=== PATIENT | female | born 1955 | race Caucasian/White ===

== ENCOUNTER → 2016-11-25 | Outpatient (CLI) | payer OTHER ==
--- NOTE | 2016-11-27 07:50 | DX ---
DEXA Bone Densitometry Technique: DEXA scan was performed on [employer] Discovery W Bone Densitometer Indication: Prior fracture Comparator Study: None Results: Lumbar Spine BMD: 0.978 T-score: -0.6 1/3 Radius BMD: 0.647 T-score: -0.6 CONCLUSION: Normal bone mineral density ADDITIONAL COMMENTS: Consider repeating the study in 3-4 years NOTE: The risk of osteoporotic fractures increases approximately twofold for each 1.0 SD decrease in T-score. The T-score represents the standard deviations from a young normal, same sex, reference po pulation. Low bone density is not the only risk factor for fracture. Clinical factors to consider include fall risk, previous osteoporotic fractures, family history of fractures, smoking, and low body weight. Patients who have an unexpectedly low BMD may need to be evaluated for secondary causes of low bone m ineral density. In comparing the present study to a prior study, lack of a significant increase or decrease in BMD ma y signify efficacy of the patient's present treatment. Bone mineral density measurements performed with densitometers produced by different manufacturers ar e not comparable. For the most reproducible BMD measurement, subsequent exams should be performed on the same densitometer.
== END ==
LOC: BMCIMAGING 10:02
PROVIDERS: ATTEND Internal Medicine
DX: Z13.820 Encounter for screening for osteoporosis (principal)

== ENCOUNTER 2018-08-08 10:08 | Inpatient (IN) | payer OTHER ==
--- NOTE | 2018-08-08 10:38 | EDPHY ---
H & P Stated Complaint: Right sided weakness Time Seen by Provider: 08/08/18 10:24 - Personal History Current Tetanus/Diphtheria Vaccine: Yes - Medical/Surgical History Hx Asthma: No Hx Chronic Respiratory Disease: No Hx Diabetes: No Hx Cardiac Disease: No Hx Renal Disease: No Hx Cirrhosis: No Hx Alcoholism: No Other PMH: Sepsis, anxiety, - Social History Smoking Status: Never smoked Constitutional: Initial Vital Signs Temperature (C) 37.4 C 08/08/18 10:12 Heart Rate 102 H 08/08/18 10:12 Respiratory Rate 18 08/08/18 10:12 Blood Pressure 117/87 H 08/08/18 10:12 O2 Sat (%) 96 08/08/18 10:12 O2 Delivery Mode Room Air Allergies/Adverse Reactions: Penicillins Allergy (Intermediate, Verified 08/08/18 10:17) RASH, SOB Sulfa (Sulfonamide Antibiotics) Allergy (Intermediate, Verified 08/08/18 10:17) RASH, SOB Home Medications: Medication Instructions Recorded Cephalexin [Keflex] 500 mg PO QID #40 cap 06/24/11 Estradiol [Vivelle-Dot] 1 g PO 06/24/11 Gabapentin 150 mg PO 06/24/11 Phenazopyridine HCl [Pyridium] 100 mg PO TID PRN #10 tab 06/24/11 Pnv No.4/Iron Cbn&Gluc/FA/Tr 1 each PO 06/24/11 [Vinate Calcium Tablet] Pregabalin [Lyrica] 50 mg PO DAILY 06/24/11 Prometrium 06/24/11 Tramadol HCl [Rybix Odt] 25 mg PO TID 06/24/11 levOFLOXACIN [Levaquin] 750 mg PO DAILY #7 tab 06/24/11 Departure - Departure Condition: Fair Referrals: Ludy Caro MD [Primary Care Provider] - As per Instructions
--- NOTE | 2018-08-08 10:49 | EDPHY ---
H & P Smoking Status: Never smoked Time Seen by Provider: 08/08/18 10:24 HPI/ROS: CHIEF COMPLAINT: Fever, weakness, myalgias HISTORY OF PRESENT ILLNESS: 62-year-old female presents to the emergency department by private vehicle complaining of fever, weakness and general myalgias. The patient states that she woke up on with fairly abrupt onset of some right-sided jaw and neck pain that radiated up to the right side of her head and down into her right shoulder. She went to see her dentist who did an x-ray and thought that she had an abscess tooth. She apparently had some dental work on Thursday. She was not started on antibiotics at that time as she was told that the guidelines and changed. She called her primary care provider over the weekend because she was feeling weak and achy and they thought that she needed an antibiotic. A prescription for Zithromax was called for the patient, however she has not started it since she has felt too weak to drive to pick it up. She feels short of breath. She is also having pain in her chest although she does not know if this is pain in her breast or in her chest. Denies back pain. She has had temperatures of 104-102. She took some ibuprofen this morning at 9:00 a.m., 2 hr ago for a temperature of 102 degrees. She feels generally overall weak. 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 She typically walks on her own although has been told that she should be walking with a cane. She has been under lot of stress lately which she feels is aggravating her irritable bowel syndrome. Her primary care provider recommended that she see a psychiatrist and saw a psychiatrist for the 1st time 2 weeks ago was started on Paxil 10 mg taking half a tablet and working her way up to a full 10 mg tablet. She was also given lorazepam 0.5 mg to use p.r.n. Anxiety. REVIEW OF SYSTEMS: Constitutional: Fevers, chills as above. Eyes: No double or blurry vision. ENT: Mouth is very dry. No sore throat. No dysphagia. Respiratory: No cough, no shortness of breath. Cardiac: No chest pain. Gastrointestinal: No abdominal pain, vomiting or diarrhea. Genitourinary: No dysuria. Musculoskeletal: Right-sided neck and jaw pain. No back pain. Skin: No rashes. Neurological: Right-sided headache. (Kasie Campoverde) Past Medical/Surgical History: Perforated appendicitis and sepsis 2010, (Kasie Campoverde) Social History: , she had twins at the age of 49. 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 (Kasie Campoverde) Physical Exam: General Appearance: Alert, no distress. Temperature 37.4 degrees, heart rate 105, 96% on room air. Eyes: Pupils equal and round. Extraocular motions are all intact. ENT: Mouth: Mucous membranes appears very dry. Respiratory: No wheezing, rhonchi, or rales, lungs are clear to auscultation. Cardiovascular: Irregular rate and rhythm. Gastrointestinal: Abdomen is soft and nontender, no masses, no rebound or guarding, bowel sounds normal. Neurological: Alert and oriented x 3, cranial nerves II through XII grossly intact Skin: Warm and dry, no rashes. Musculoskeletal: Nontender to palpate along the cervical, thoracic or lumbar spine. Neck is supple. Extremities: Full range of motion and no peripheral edema. Psychiatric: Patient is oriented X 3, there is no agitation. (Kasie Campoverde) Constitutional: Initial Vital Signs Temperature (C) 37.4 C 08/08/18 10:12 Heart Rate 102 H 08/08/18 10:12 Respiratory Rate 18 08/08/18 10:12 Blood Pressure 117/87 H 08/08/18 10:12 O2 Sat (%) 96 08/08/18 10:12 O2 Delivery Mode Room Air Allergies/Adverse Reactions: Penicillins Allergy (Intermediate, Verified 08/08/18 10:17) RASH, SOB Sulfa (Sulfonamide Antibiotics) Allergy (Intermediate, Verified 08/08/18 10:17) RASH, SOB Home Medications: Medication Instructions Recorded Cholecalciferol (Vitamin D3) 3,000 unit PO HS 08/08/18 [Vitamin D3] Herbals/Supplements -Info Only 1 ea PO DAILY 08/08/18 Ibuprofen [Advil] 400 mg PO BID PRN 08/08/18 LORazepam [Ativan (*)] 0.25 mg PO BID PRN 08/08/18 Multivitamins [Multivitamin (*)] 1 each PO DAILY 08/08/18 Nf Estrogen 1 each PO HS 08/08/18 Nf Testosterone/Dhea 1 each PO DAILY 08/08/18 PARoxetine HCL [Paxil 10mg (*)] 2.5 mg PO BID 08/08/18 traMADol [Ultram 50 mg (*)] 12.5 mg PO TID PRN 08/08/18 Medical Decision Making - Diagnostics Imaging: Discussed imaging studies w/ orthopedically impaired teacher Radiologist - Diagnostics Imaging Results: Imaging Impressions Chest X-Ray 08/08/18 10:52 Impression: No evidence for acute cardiopulmonary abnormality. Head CT 08/08/18 11:14 Impression: Normal CT of the head without contrast for age. Results called and discussed with Kasie Campoverde PA-C on August 08, 2018 at 1215 hours. Head CTA 08/08/18 11:14 Impression: 1. The common carotid arteries and vertebral arteries are widely patent without evidence for flow significant stenosis or dissection. 2. Multilevel degenerative disk and degenerative joint disease cervical spine. Measurement of carotid stenosis is based on the residual internal carotid diameter with [place] Symptomatic Carotid Endarterectomy Trial (NASCET) based stenosis levels. CT Angiogram of the Brain Clinical Indications: Headache, dizziness, weakness. Technique: CT angiogram of the brain was performed with the uneventful intravenous administration of 75 mL Isovue-370 contrast. Multiplanar reconstructions including 3D reconstructions performed and evaluated on [employer] workstation in order to better evaluate the lower b[place] of [place] vessels. Images were manipulated by the radiologist at the computer workstation. Dose reduction techniques were utilized. Findings: Major vessels of the lower b[place] of [place] are adequately displayed, demonstrating no evidence of aneurysm, vascular malformation, flow-limiting stenosis, or occlusion. Bilateral cavernous internal carotid arteries and vertebrobasilar system demonstrate no evidence of flow-limiting stenosis, aneurysm, occlusion, or dissection. Superior sagittal sinus, transverse sinuses , and major veins demonstrate no evidence of intraluminal thrombi. There is a tiny right posterior communicating artery and there appears to be mild dilatation of the origin, measuring 1.5 mm or infundibulum. Might just likely be a small aneurysm. Other variant anatomy includes persistent communication from the cavernous internal carotid artery to the basilar artery. Impression: Probable mild dilatation of the origin/infundibulum of the right posterior communicating artery, which is hypoplastic otherwise. Consider follow- up with a less likely consideration that this could be a small aneurysm. Otherwise, normal CT angiogram of the brain. Results called and discussed with Kasie Campoverde PA-C on August 08, 2018 at 1220 hours. Neck CTA 08/08/18 11:14 Impression: 1. The common carotid arteries and vertebral arteries are widely patent without evidence for flow significant stenosis or dissection. 2. Multilevel degenerative disk and degenerative joint disease cervical spine. Measurement of carotid stenosis is based on the residual internal carotid diameter with [place] Symptomatic Carotid Endarterectomy Trial (NASCET) based stenosis levels. CT Angiogram of the Brain Clinical Indications: Headache, dizziness, weakness. Technique: CT angiogram of the brain was performed with the uneventful intravenous administration of 75 mL Isovue-370 contrast. Multiplanar reconstructions including 3D reconstructions performed and evaluated on [employer] workstation in order to better evaluate the lower b[place] of [place] vessels. Images were manipulated by the radiologist at the computer workstation. Dose reduction techniques were utilized. Findings: Major vessels of the lower b[place] of [place] are adequately displayed, demonstrating no evidence of aneurysm, vascular malformation, flow-limiting stenosis, or occlusion. Bilateral cavernous internal carotid arteries and vertebrobasilar system demonstrate no evidence of flow-limiting stenosis, aneurysm, occlusion, or dissection. Superior sagittal sinus, transverse sinuses , and major veins demonstrate no evidence of intraluminal thrombi. There is a tiny right posterior communicating artery and there appears to be mild dilatation of the origin, measuring 1.5 mm or infundibulum. Might just likely be a small aneurysm. Other variant anatomy includes persistent communication from the cavernous internal carotid artery to the basilar artery. Impression: Probable mild dilatation of the origin/infundibulum of the right posterior communicating artery, which is hypoplastic otherwise. Consider follow- up with a less likely consideration that this could be a small aneurysm. Otherwise, normal CT angiogram of the brain. Results called and discussed with Kasie Campoverde PA-C on August 08, 2018 at 1220 hours. ED Course/Re-evaluation: 62-year-old female presents to the emergency department feeling weak. She is complaining of right-sided jaw in headache. The case was discussed with Dr. Delores Talavera who also evaluated the patient. CT imaging of the brain without contrast and CTA of the head and neck were ordered which revealed no evidence of intracranial bleeding, mass, dissection. There was a possible infundibulum versus possible 1.8 mm small aneurysm. This was discussed with the patient. Radiologist recommended follow-up CT scan in 6 months for further evaluation. The patient had had an EKG with sinus arrhythmia. Her troponin was negative. She will be admitted to telemetry floor. Laboratory studies reveal sodium of 127. The patient is also anemic with hemoglobin of 12 and hematocrit 34.7%. I was concerned that this patient was septic. The patient had recent dental work and has reported temperatures of 104-102 degrees. Temperature was 37.4 degrees. Lactate was normal. Blood cultures are pending. Chest x-ray reveals no evidence of pneumonia. Urinalysis reveals only trace bacteria with no other signs of infection. (Kasie Campoverde) Differential Diagnosis: Including but not limited to electrolyte abnormality, arrhythmia, aneurysm, dissection, sepsis (Kasie Campoverde) Other Provider: [id number]: Assessed patient in conjunction with RAMAN Campoverde. This is a 62 y/o female with a complicated medical history complaining of malaise for the last week, weakness, and right upper extremity pain. Last week she developed a sore throat with right-sided jaw and ear pressure. She saw her dentist last for this and had a procedure performed where they drilled through one of her crowns. This improved the right ear pressure, but she now has left ear pressure. Over the past several days, she has developed shooting pain in her right jaw, right side of her head and face, right lateral neck, right shoulder, and down the right side of her back. She thought her symptoms could be related to TMJ and jaw clenching and her ENT prescribed a muscle relaxant that the patient was unable to tolerate. She currently feels "weak and achy all over," has a headache, continues to have right upper extremity pain, and feels near-syncopal upon sitting up in bed. Advil has not improved her pain. She notes she has been under extreme stress at work for several months. She's experienced intermittent panic attacks and tachycardia that she discussed with her PCP. She trialed Zoloft, but discontinued due to side effects. She started a low dose of Paxil and lorazepam 9 days ago. The 0.25mg lorazepam BID improves her shakiness. She mentions over the last few months she's had intermittent palpitations that "sometimes it feels like arhythmia, sometimes it feels like heart racing." She also notes new occasional urinary incontinence. PMH includes: 1. UTI infections, bowel infections 2. Severe degenerative osteoarthritis requiring hip replacements 7 and 10 years ago. Surgery caused sciatic nerve damage in hip with partial paralysis that has slowly improved. 3. Sepsis related to ruptured appendix and abscesses 7 years. Subsequent bowel resections required - Dr. 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 Friend at bedside. PCP : Dr. Ludy Caro Exam: irregular heart rate, neuro ___ (Delores Talavera) - Data Points Laboratory Results: Laboratory Results 08/08/18 10:29 08/08/18 10:29 08/08/18 08/08/18 08/08/18 12:20 10:58 10:34 WBC RBC Hgb Hct MCV MCH MCHC RDW Plt Count MPV Neut % (Auto) Lymph % (Auto) [place] % (Auto) Eos % (Auto) Baso % (Auto) Nucleat RBC Rel Count Absolute Neuts (auto) Absolute Lymphs (auto) Absolute Monos (auto) Absolute Eos (auto) Absolute Basos (auto) Absolute Nucleated RBC Immature Gran % Seg Neutrophils % Band Neutrophils % Lymphocytes % Monocytes % Eosinophils % Basophils % Metamyelocytes % Myelocytes % Promyelocytes % Blast Cells % Immature Gran # Absolute Seg Neuts Absolute Band Neuts Absolute Lymphocytes Absolute Monocytes Absolute Eosinophils Absolute Basophils Absolute Metamyelocyte Absolute Myelocytes Absolute Promyelocytes Absolute Plasma Cells Nucleated RBCs Absolute Blast Cells Plasma Cells % Platelet Estimate Echinocytes Smear Review By VBG Lactic Acid 1.5 mmol/L mmol/L (0.7-2.1) Sodium Potassium Chloride Carbon Dioxide Anion Gap BUN Creatinine Estimated GFR Glucose Calcium POC Troponin I 0.01 ng/mL ng/mL (0.00-0.08) TSH Urine Color YELLOW Urine Appearance CLEAR Urine pH 6.0 (5.0-7.5) Ur Specific [place] 1.021 (1.002-1.030) Urine Protein NEGATIVE (NEGATIVE) Urine Ketones NEGATIVE (NEGATIVE) Urine Blood 2+ H (NEGATIVE) Urine Nitrate NEGATIVE (NEGATIVE) Urine Bilirubin NEGATIVE (NEGATIVE) Urine Urobilinogen NEGATIVE EU EU (0.2-1.0) Ur Leukocyte Esterase NEGATIVE (NEGATIVE) Urine RBC 1-3 /hpf /hpf (0-3) Urine WBC 1-3 /hpf /hpf (0-3) Ur Epithelial Cells TRACE /lpf /lpf (NONE-1+) Urine Bacteria TRACE /hpf H /hpf (NONE SEEN) Urine Mucus TRACE /lpf /lpf (NONE-1+) Urine Glucose NEGATIVE (NEGATIVE) 08/08/18 08/08/18 08/08/18 10:29 10:29 10:29 WBC 4.43 10^3/uL 10^3/uL (3.80-9.50) RBC 4.28 10^6/uL 10^6/uL (4.18-5.33) Hgb 12.0 g/dL L g/dL (12.6-16.3) Hct 34.7 % L % (38.0-47.0) MCV 81.1 fL L fL (81.5-99.8) MCH 28.0 pg pg (27.9-34.1) MCHC 34.6 g/dL g/dL (32.4-36.7) RDW 12.8 % % (11.5-15.2) Plt Count 176 10^3/uL 10^3/uL (150-400) MPV 8.9 fL fL (8.7-11.7) Neut % (Auto) Not Reported Lymph % (Auto) Not Reported Vernon % (Auto) Not Reported Eos % (Auto) Not Reported Baso % (Auto) Not Reported Nucleat RBC Rel Count Not Reported Absolute Neuts (auto) Not Reported Absolute Lymphs (auto) Not Reported Absolute Monos (auto) Not Reported Absolute Eos (auto) Not Reported Absolute Basos (auto) Not Reported Absolute Nucleated RBC Not Reported Immature Gran % Not Reported Seg Neutrophils % 56.6 % % Band Neutrophils % 35.4 % % Lymphocytes % 5.0 % % Monocytes % 1.0 % % Eosinophils % 1.0 % % Basophils % 0.0 % % Metamyelocytes % 0.0 % % Myelocytes % 0.0 % % Promyelocytes % 0.0 % % Blast Cells % 0.0 % % Immature Gran # Not Reported Absolute Seg Neuts 2.51 10^/uL 10^/uL (1.70-6.50) Absolute Band Neuts 1.57 10^3/uL H 10^3/uL (0.00-0.70) Absolute Lymphocytes 0.22 10^3/uL L 10^3/uL (1.00-3.00) Absolute Monocytes 0.04 10^3/uL L 10^3/uL (0.30-0.80) Absolute Eosinophils 0.04 10^3/uL 10^3/uL (0.03-0.40) Absolute Basophils 0.00 10^3/uL L 10^3/uL (0.02-0.10) Absolute Metamyelocyte 0.00 10^3/mL 10^3/mL (0.00-0.00) Absolute Myelocytes 0.00 10^3/mL 10^3/mL (0.00-0.00) Absolute Promyelocytes 0.00 10^3/uL 10^3/uL (0.00-0.00) Absolute Plasma Cells 0.04 10^3/uL H 10^3/uL (0.00-0.00) Nucleated RBCs 0 /100 WBC /100 WBC (0-0) Absolute Blast Cells 0.00 10^3/uL 10^3/uL (0.00-0.00) Plasma Cells % 1.0 % % Platelet Estimate ADEQUATE (ADEQ) Echinocytes 2+ H Smear Review By Pending VBG Lactic Acid Sodium 127 mEq/L L mEq/L (135-145) Potassium 3.5 mEq/L mEq/L (3.3-5.0) Chloride 93 mEq/L L mEq/L (97-110) Carbon Dioxide 23 mEq/l mEq/l (22-31) Anion Gap 11 mEq/L mEq/L (8-16) BUN 15 mg/dL mg/dL (7-23) Creatinine 0.6 mg/dL mg/dL (0.6-1.0) Estimated GFR > 60 Glucose 113 mg/dL H mg/dL (70-100) Calcium 8.2 mg/dL L mg/dL (8.5-10.4) POC Troponin I TSH 0.595 uIU/mL uIU/mL (0.465-4.680) Urine Color Urine Appearance Urine pH Ur Specific [place] Urine Protein Urine Ketones Urine Blood Urine Nitrate Urine Bilirubin Urine Urobilinogen Ur Leukocyte Esterase Urine RBC Urine WBC Ur Epithelial Cells Urine Bacteria Urine Mucus Urine Glucose Medications Given: Sodium Chloride (Ns) 1,000 mls @ 100 mls/hr IV CONT RIGO Stop: 02/04/19 15:29 Last Admin: 08/08/18 16:23 Dose: 1,000 mls Lorazepam (Ativan) 0.25 mg PO BID PRN PRN Reason: Anxiety Stop: 02/04/19 15:21 Last Admin: 08/08/18 16:23 Dose: 0.25 mg Discontinued Medications Diphenhydramine HCl (Benadryl Injection) 25 mg IVP EDNOW ONE Stop: 08/08/18 12:04 Last Admin: 08/08/18 12:06 Dose: 25 mg Sodium Chloride (Ns) 1,000 mls @ 0 mls/hr IV ONCE ONE PRN Reason: Wide Open Stop: 08/08/18 10:53 Last Admin: 08/08/18 11:02 Dose: 1,000 mls Point of Care Test Results: Chemistry 08/08/18 10:34 POC Troponin I 0.01 ng/mL ng/mL (0.00-0.08) Departure - Departure Disposition: [facility] Inpatient Acute Clinical Impression: Weakness, Hyponatremia, Sinus arrhythmia Condition: Fair
[2018-08-08] MEDS ORDERED: NS 1,000 ML IV ONE (10:52)
[2018-08-08 11:08] LABS: PLATELET COUNT 176 10^3/uL (150-400)
[2018-08-08] MEDS ORDERED: IOPAMIDOL (ISOVUE 370) 100 ML BTL IV ONE (11:21)
[2018-08-08] MEDS ORDERED: HYDROmorphONE/DILAUDID 1 MG/ML INJ IVP PRN (15:00)
--- NOTE | 2018-08-08 15:12 | CPEKG ---
Test Reason : OPEN Blood Pressure : / mmHG Vent. Rate : 088 BPM Atrial Rate : 130 BPM P-R Int : 168 ms QRS Dur : 082 ms QT Int : 377 ms P-R-T Axes : 084 -05 083 degrees QTc Int : 457 ms Sinus tachycardia Paired ventricular premature complexes Anterior infarct, old Nonspecific T abnormalities, lateral leads Confirmed by Delores Talavera ([id number]) on 08/08/2018 3:12:26 PM Referred By: Confirmed By:Delores Talavera
--- NOTE | 2018-08-08 15:12 | CPEKG ---
Test Reason : OPEN Blood Pressure : / mmHG Vent. Rate : 096 BPM Atrial Rate : 097 BPM P-R Int : 149 ms QRS Dur : 076 ms QT Int : 344 ms P-R-T Axes : 084 003 065 degrees QTc Int : 435 ms Sinus tachycardia Multiple premature complexes, vent & supraven Anterior infarct, old Confirmed by Delores Talavera ([id number]) on 08/08/2018 3:12:01 PM Referred By: Confirmed By:Delores Talavera
[2018-08-08] MEDS ORDERED: traMADol 50 MG TAB PO PRN ×2 (15:22→15:26)
[2018-08-08] MEDS ORDERED: ONDANSETRON 4 MG/2 ML VIAL IVP PRN (15:26)
[2018-08-08] MEDS ORDERED: PROMETHAZINE HCL 25 MG/ML INJ IVP PRN (15:26)
[2018-08-08] MEDS ORDERED: CYCLOBENZAPRINE 10 MG TAB PO PRN (15:26)
[2018-08-08] MEDS ORDERED: oxyCODONE IR 5 MG TAB PO PRN (15:26)
[2018-08-08] MEDS: NS 1,000 ML IV SCH (16:23)
[2018-08-08] MEDS: LORazepam 0.5 MG TAB PO PRN (16:23)
--- NOTE | 2018-08-08 16:36 | GHP ---
DATE OF ADMISSION: 08/08/2018 CHIEF COMPLAINT: Neck pain. HISTORY: The patient is a 62-year-old female who has had a fever and myalgias for the last 3 days. This has been associated with a right-sided posterior neck pain that radiates down to her right shoul timmy, as well as up to the right side of her head and to her right jaw. She saw her dentist who told her she had an abscessed tooth. She had this intervened upon with her dentist a couple of times, but it did not improve her pain. Temp at home up to 104. She has been having some chest pain initially on the right side, but then, it moved to the left side. This is nonpleuritic. She has been feeling dizzy. The pain does not change with head movement. She does not have a sore throat. She has had some shortness of breath. The patient has not been feeling well for the last 3 months. 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 She has been seen by Psychiatry. Her family has concern because this is a dramatic change from her previous level of functionality. She feels currently like she is crawling out of her skin a fter receiving IV contrast, which she thinks she might be allergic to. She has had night sweats for 5 years. She has had nausea without vomiting. She has had some shooting abdominal pain. She has jaramillo d diarrhea for 8 weeks. PAST MEDICAL HISTORY: 1. 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 2. Irritable bowel syndrome. 3. Anxiety and panic disorder. 4. Syndrome of inappropriate antidiuretic hormone. PAST SURGICAL HISTORY: Appendectomy with rupture. MEDICATIONS: Please see computer record for full detailed list. ALLERGIES: To penicillin, sulfa. SOCIAL HISTORY: No smoking. She drinks occasionally half glass of wine. She has a CBD oil every ni ght. She is . She had twins at age 49. She is a ELASTIC CUTTER in [place] and has had extraordinary am ount of stress at work lately, and she is trying to quit, but it has been difficult because the jean pierre rodriguez does not want her to resign. REVIEW OF SYSTEMS: Complete review of systems obtained. Review of systems negative for constitution al, HEENT, GI, pulmonary, cardiovascular, , hematology, skin, muscular, endocrine, psych, except fo r positives and negative as noted in HPI. FAMILY HISTORY: Reviewed, noncontributory to presenting complaint. PHYSICAL EXAMINATION: GENERAL: Well-developed, well-nourished female in no acute distress, although she does seem very uncomfortable, very anxious, squirming in bed. VITAL SIGNS: Temperature is 36.6 , pulse 105, blood pressure 127/20, saturating 95% on room air. HEENT: Eyes: Normal conjunctivae. Pupils react to light. ENT: Normal ears and nose. Hearing intact. Normal lips and teeth. Oropha rynx moist. NECK: Trachea midline. No thyromegaly. CHEST: Normal respiratory effort. Clear to a uscultation bilaterally.. CARDIOVASCULAR: Regular rate and rhythm. No murmur. No lower extremity edema. ABDOMEN: Soft, nontender. No hepatosplenomegaly. SKIN: Warm, dry, intact. No rash. MUSC ULOSKELETAL: No cyanosis or clubbing. Strength 5/5 upper and lower extremities. NEUROLOGIC: Crani al nerves intact. Normal sensation to light touch. PSYCH: Alert, oriented x3. She is very anxious , but cooperative, pleasant. Normal judgment, insight. Normal memory. LABORATORY/IMAGING: White count 4.43, hematocrit 34.7, platelets 176. Sodium 127, potassium 3.5, ch loride 93, bicarb 23, BUN 15, creatinine 0.6, glucose 113. Troponin is negative. TSH is 0.595. Uri nalysis is negative. Lactate 1.5. Differential on her CBC shows 35% bands. EKG viewed by me. My personal interpretation is sinus rhythm with PACs and PVCs. Chest x-ray is negative. Head CT is negative. CT angiogram of the head and neck shows possible MACHINE GRAINER aneurysm. ASSESSMENT/PLAN: 1. Sepsis as evidenced by fever, bandemia, and tachycardia. Chest x-ray and urinalysis are negative . Blood cultures have been sent. We will hold on antibiotics pending source identification as she i s very stable. We will check a respiratory PCR. I wonder if this dental infection may be contributi ng. 2. Frequent premature atrial contractions and premature ventricular contractions. This may be relat ed to her severe anxiety. We do not see any more serious arrhythmia at this time. We will continue to monitor her on telemetry, and check an echocardiogram. 3. Panic attacks. Currently extremely anxious on presentation. We will give a dose of intravenous Ativan. 4. Right neck pain imaging is negative. This may be musculoskeletal. If pain remains severe could consider imaging of the dental abscess versus potentially MRI of the cervical spine. 5. Hyponatremia. Will hydrate overnight with intravenous fluids and recheck. 6. Posterior cerebral artery aneurysm. This should be followed up as an outpatient. 7. Chronic left foot drop and sciatica from previous surgical nerve injury up. ADMISSION STATUS: Will admit to observation. Reevaluate tomorrow. CODE STATUS: Full. DVT PROPHYLAXIS: She is low risk. Will ambulate early. /[id number]/MODL
[2018-08-08] MEDS: LORazepam 2 MG/ML INJ IVP PRN ×2 (17:57→23:28)
[2018-08-08] MEDS: PARoxetine HCL 10 MG TAB PO SCH (23:24)
[2018-08-08] MEDS: ACETAMINOPHEN 325 MG TAB PO PRN (23:28)
[2018-08-09] MEDS: ESTROGEN PO SCH ×2 (01:29→21:14)
[2018-08-09 07:49] LABS: PLATELET COUNT 181 10^3/uL (150-400)
[2018-08-09 08:21] LABS: CREATINE KINASE 54 IU/L (0-156)
[2018-08-09] MEDS: PARoxetine HCL 10 MG TAB PO SCH ×2 (08:59→21:16)
[2018-08-09] MEDS: LORazepam 2 MG/ML INJ IVP PRN (08:59)
[2018-08-09] MEDS: NS 1,000 ML IV SCH ×2 (09:00→21:15)
[2018-08-09] MEDS ORDERED: traMADol 50 MG TAB PO PRN (11:03)
[2018-08-09] MEDS ORDERED: methylPREDNISolone SOD SUCC 125 MG/2 ML VIAL IVP ONE (11:33)
[2018-08-09] MEDS ORDERED: FAMOTIDINE 20 MG/NACL 50 ML IV ONE (11:33)
[2018-08-09] MEDS: ASPIRIN EC 81 MG TAB PO SCH (11:37)
[2018-08-09] MEDS: DHEA PO SCH (11:41)
[2018-08-09] MEDS: TESTOSTERONE PO SCH (11:41)
[2018-08-09] MEDS ORDERED: LORazepam 2 MG/ML INJ IVP ONE (12:30)
--- NOTE | 2018-08-09 12:56 | ECHO ---
[email or web address] [address] [address] Main: [phone] Fax: Transthoracic Echocardiogram Name: RANDI ALVAREZ MR#: [id number] Study Date: 08/09/2018 Study Time: 08:52 AM Date of : 1955 Age: 62 year(s) Height: 165.1 cm (65 in.) Weight: 54.89 kg (121 lb.) BSA: 1.6 m2 Gender: Female Examination: Echo Indication: premature beats Image Quality: Adequate Contrast: Requested by: Ritu Lane BP: 130 mmHg/87 mmHg Heart Rate: Rhythm: Indication: premature beats Procedure [employer] Instructor: Noni Merchant RDCS Reading Physician: Braydon Starkey MD Requesting Provider: Conclusions: Normal size left ventricle. No LV hypertrophy. Normal global systolic LV function. EF is 61 %. Normal RV function. The left atrium is normal in size. The right atrium is normal in size. Mild mitral valve regurgitation is present. No mitral stenosis is present. Minimal aortic cusp calcification is noted. There is no significant aortic valve regurgitation. No aortic valve stenosis is present. Trivial tricuspid valve regurgitation. Small pericardial effusion. No pleural effusion. Measurements: Chambers Valvular Assessment AV/MV Valvular Assessment TV/PV Normal Normal Normal Name Value Range Name Value Range Name Value Range Ao Joyce (2D): 2.3 cm (1.4 cm-2.6 AV Vmax: 1.44 m/s (1 m/s-1.7 PV Vmax: 1.13 m/s (0.6 m/s-0.9 cm) m/s) m/s) IVSd (2D): 1.0 cm (0.6 cm-1.1 AV maxP mmHg ( - ) PV PGmax: 5 mmHg ( - ) cm) AV meanP mmHg ( - ) LVDd (2D): 3.6 cm (3.9 cm-5.3 LEONILA (VTI): 1.9 cm ( - ) cm) MV E Vmax: 0.99 m/s ( - ) LVDs (2D): 2.3 cm (2.1 cm-4 MV A Vmax: 0.92 m/s ( - ) cm) MV E/A: 1.08 ( - ) LVPWd (2D): 0.9 cm ( - ) MV PHT: 0.061 s ( - ) LVOTd 1.8 cm 1.8 cm mm MVA (PHT): 3.6 s ( - ) Patient: RANDI ALVAREZ Study Date: 08/09/2018 Page 1 of 2 08:52 AM LVEF (BP): 61 % (>=55 %) RVDd(2D): 2.0 cm (1.9 cm-3.8 cmmm) Continued Measurements: Chambers Valvular Assessment AV/MV Name Value Name Value LADs: 3.0 cm MV DecTime: 162 m/s LADs Lon.2 cm MV E' Septal: 0.09 m/s LA Area: 14.1 cm2 MV E/E' Septal: 11.10 LA Volume: 38 ml MV E/E' Lateral: 14.10 LA Volume Index: 23.8 ml/m2 RA Area: 10.5 cm2 Additional Vessels Name Value Ao Ascendin.5 cm Inferior Vena Cava: 2.1 cm Findings: Left Ventricle: Normal size left ventricle. No LV hypertrophy. Normal global systolic LV function. EF is 61 %. No regional wall motion abnormality. Unable to assess diastolic dysfunction. Right Ventricle: Normal size right ventricle. Normal RV function. Left Atrium: The left atrium is normal in size. Right Atrium: The right atrium is normal in size. Mitral Valve: The mitral valve is normal in appearance and function. Mild mitral valve regurgitation is present. No mitral stenosis is present. Aortic Valve: The aortic valve is tri-leaflet. Minimal aortic cusp calcification is noted. There is no significant aortic valve regurgitation. No aortic valve stenosis is present. Tricuspid Valve: The tricuspid valve is normal in appearance and function. Trivial tricuspid valve regurgitation. Pulmonic Valve: The pulmonic valve is normal in appearance and function. There is no pulmonic regurgitation seen. Aorta: The aorta is normal. Normal size aortic root measuring 2.3 cm. Normal size ascending aorta measuring 2.5 cm. IVC: The IVC is normal sized. Pericardium: Small pericardial effusion. No echocardiographic evidence of hemodynamic compromise. No pleural effusion. (No Signature Object) Patient: RANDI ALVAREZ Study Date: 08/09/2018 Page 2 of 2 08:52 AM [id number]
[2018-08-09] MEDS ORDERED: IOPAMIDOL (ISOVUE 370) 100 ML BTL IV ONE (14:15)
--- NOTE | 2018-08-09 14:42 | ASMTCMCOM ---
CM Note CM Note Notes: Pt admitted for unknown infection, awaiting result of blood cultures. Pt lives independently with who is available to assist. No therapies ordered. Spoke with pt and RN in the room. Pt plans to discharge home independently. No CM need noted at this time. CM will follow. D/C Plan: Independent Date Signed: 08/09/2018 02:40 PM Electronically Signed By:Cortney Butterfield
[2018-08-09] MEDS: ACETAMINOPHEN 325 MG TAB PO PRN (15:02)
--- NOTE | 2018-08-09 16:46 | HOSPPROG ---
Hospitalist Progress Note Assessment/Plan: * Sepsis as evidenced by Fever/bandemia/tachycardia -cultures negative -CT scans negative -empiric antibiotics started for recent dental work - tooth abscess * TIA - transient right weakness -MRI brain negative, CTA head/neck negative -ASA, check lipids * Neck pain/ headache - ? musculoskeletal * Anxiety/panic -ativan prn * PDA aneurysm -outpatient follow-up * Pelvic congestion syndrome -outpatient follow-up * Anemia of chronic disease - ? why * Increased LFT - imaging negative -follow * Hyponatremia -better with IVF * Chronic left foot drop and sciatica due to surgical nerve injury Subjective: Better Objective: Vital Signs Temp Pulse Resp BP Pulse Ox 37.4 C 100 23 H 136/72 H 97 08/09/18 15:53 08/09/18 15:53 08/09/18 15:53 08/09/18 15:53 08/09/18 15:53 Microbiology 08/08/18 18:55 Gastrointestinal Tract Panel (PCR) - Final Stool No Organism Detected 08/08/18 16:40 Respiratory Panel (PCR) - Final Nasal, Sinus - [place] Viral Transport No Organism Detected Laboratory Results 08/09/18 07:30 08/09/18 07:30 08/08/18 08/09/18 08/10/18 05:59 05:59 05:59 Intake Total 2400 710 Output Total 2000 710 Balance 400 0 d/w Dr. Black oral surgery she saw as outpatient - tooth wasn't that bad last she saw - recommended CT CT abd - pelvic congestion syndrome - Physical Exam Constitutional: no apparent distress, appears nourished, not in pain Cardiovascular: regular rate and rhythym, no murmur, rub, or gallop Respiratory: no respiratory distress, no rales or rhonchi, clear to auscultation Gastrointestinal: normoactive bowel sounds, soft, non-tender abdomen, no palpable masses Skin: no rashes or abrasions, no fluctuance, no induration Neurologic: AAOx3, sensation intact bilaterally Psychiatric: interacting appropriately, not anxious, not encephalopathic, thought process linear ICD10 Worksheet Patient Problems: Problems Problem Status Onset Hyponatremia Acute Sinus arrhythmia Acute Weakness Acute
--- NOTE | 2018-08-09 17:23 | PDMN ---
Medical Necessity Medical necessity: [facility] [place] M160 Sepsis and MGN Neurology GRG : 62 yo w/ sepsis as evidenced by fever, bandemia, and tachycardia, freq premature atrial and ventricular contractions, right neck pain, hyponatremia and posterior cerebral arterial aneurysm. Initially OBS but pt cont with intermittent tachycardia, fever overnight 38.9, BC pending, IV antibx and antifungals to cont, cont IVF, elevated LFTs noted, facial swelling noted, new transient R weakness noted, eval for TIA, multi CTs/MRI ordered, chronic anemia noted of unknown etiology, PT/OT and neuro consults ordered. Will require another MN for ongoing diagnostic tests, monitoring and treatment. Hx sciatic nerve damage, IBS, SIDH , recent abscessed tooth.
--- NOTE | 2018-08-09 22:39 | NEUROPROG ---
Assessment: [id number] - Neurology Consult: - CC: Transient right sided weakness - HPI: Pt presented to [facility] ER on 08/08/18 with complaints of 3 days of fever and myalgias. She was admitted for sepsis. While admitted she noted chest pain with associated right sided weakness that was transient. She has chronic pain from a hip replacement surgery that injured a nerve. I initially saw her on 08/09/18. Her neurologic exam was normal. She had a brain MRI, TTE, CTA head/neck , and telemetry w/o any significant findings supporting ischemia as the cause of her symptoms. I felt it was likely her atypical chest pain caused associated weakness but I recommended she begin an aspirin 81 mg qd to cover small chance this was a TIA. She was told to f/u with me in clinic 1-4 weeks after hospital discharge. - PMHx: sciatic nerve damage from hip replacement now with chronic L foot pain, IBS, anxiety w/panic attacks, SIADH - SHx: no tobacco FHx: NC - ROS: Pt denied acute fever, total vision loss, active severe chest pain, respiratory failure, total body severe rash, total bowel/bladder incontinence, psychosis, active seizures, or active bleeding - O: VS reviewed General: Alert Eyes: Fundoscopic exam not able to visualize optic disks CV: Heart RRR, no murmur, no carotid bruit Lungs: Clear to auscultation bilaterally, no rhonchi or rales Neuro: - Mental: . Oriented x person/place/date . concentration appears normal . speech fluency/comprehension normal . memory appears normal . fund of knowledge appear intact - Cranial Nerves: . II: PERRL, VFFTC . III/IV/: EOMI, no nystagmus, normal smooth pursuits, no Ptosis . V: facial sensation intact to LT . VII: face symmetric to eye closure and smile . VIII: hearing intact to conversation . IX/X: uvula raises symmetrically . XI: SCM 5/5 B/L strength . XII: tongue protrudes midline w/nl strength - Motor: . Tone: normal tone in all 4 extremity . Strength: no pronator drift, strength 5/5 throughout (B/L delt, bic, tri, hand android ios developer, hf/he, df/pf) - Reflexes: B/L bic/BR/patella 2/4 - Sensory: all 4 extremity intact to light touch - Coord: [id number]-[id number]-ljyi wnl, EMILIA wnl, dknp-to-rlvh wnl - Gait: deferred - Labs: 08/09/18- CBC Hct 32.1L, CMP Na 130L Anion gap 7L Cr 0.5L Ca 7.6L AST 142H ALT 286H Alk phos 205, B12 >1,000, TSH wnl - Rads: 08/08/18- Head CT: normal (I personally visualized the images on 08/09/18) 08/08/18- Head/neck CTA: probable mild dilation of origin/infundibulum of R posterior communicating artery which is hypoplastic otherwise. Possible small aneurysm. Otherwise normal brain CTA; neck CTA w/o any significant vessel abnormality 08/08/18- TTE: no significant abnormalities 08/09/18- Brain MRI w/o: unremarkable - Assessment: 1. Transient Right sided weakness and chest pain on 08/08/18: Pt presented to [facility] ER on 08/08/18 with complaints of 3 days of fever and myalgias. She was admitted for sepsis. While admitted she noted chest pain with associated right sided weakness that was transient. She has chronic pain from a hip replacement surgery that injured a nerve. I initially saw her on 08/09/18. Her neurologic exam was normal. She had a brain MRI, TTE, CTA head/neck, and telemetry w/o any significant findings supporting ischemia as the cause of her symptoms. I felt it was likely her atypical chest pain caused associated weakness but I recommended she begin an aspirin 81 mg qd to cover small chance this was a TIA. She was told to f/u with me in clinic 1-4 weeks after hospital discharge. - 2. Possible R HUMAN RESOURCES PROFESSIONAL aneurysm: Routine f/u with neurosurgery at outpatient recommended. - Plan: - Recommend routine outpatient referral to neurosurgery to follow possible right HUMAN RESOURCES PROFESSIONAL aneurysm - Begin aspirin 81 mg qd cover small chance transient right sided weakness was TIA - F/U in neurology clinic in 1-4 weeks Objective: Vital Signs Temp Pulse Resp BP Pulse Ox 37.2 C 93 16 153/97 H 96 08/09/18 20:00 08/09/18 20:00 08/09/18 20:00 08/09/18 20:00 08/09/18 20:00 08/08/18 08/09/18 08/10/18 05:59 05:59 05:59 Intake Total 810 Output Total 710 Balance 100 Allergies/Adverse Reactions: Penicillins Allergy (Intermediate, Verified 08/08/18 10:17) RASH, SOB Sulfa (Sulfonamide Antibiotics) Allergy (Intermediate, Verified 08/08/18 10:17) RASH, SOB
[2018-08-10] MEDS: LORazepam 0.5 MG TAB PO PRN (01:01)
[2018-08-10 05:29] LABS: PLATELET COUNT 193 10^3/uL (150-400)
[2018-08-10 05:54] LABS: INR 0.98 (0.83-1.16); PROTIME(PATIENT) 13.2 SEC (12.0-15.0)
[2018-08-10 08:28] LABS: HEPATITIS A ANTIBODY IGM (BCH) NEGATIVE (NEGATIVE); HEPATITIS B CORE AB IGM NEGATIVE (NEGATIVE); HEPATITIS B SURFACE ANTIGEN NEGATIVE (NEGATIVE); HEPATITIS C ANTIBODY TOTAL NEGATIVE (NEGATIVE)
[2018-08-10] MEDS: PARoxetine HCL 10 MG TAB PO SCH (08:37)
[2018-08-10] MEDS: NS 1,000 ML IV SCH (08:37)
[2018-08-10] MEDS: ASPIRIN EC 81 MG TAB PO SCH (08:38)
[2018-08-10] MEDS: DHEA PO SCH (08:39)
[2018-08-10] MEDS: TESTOSTERONE PO SCH (08:39)
[2018-08-10 11:29] VITALS: BP 159/101
--- NOTE | 2018-08-10 12:36 | PDIAF ---
- Diagnosis Diagnosis: sepsis Code Status: Full Code - Medication Management Discharge Medications: Medications to Continue on Transfer Cholecalciferol (Vitamin D3) [Vitamin D3] 3,000 unit PO HS 08/08/18 [Last Taken 08/07/18] Herbals/Supplements -Info Only 1 ea PO DAILY 08/08/18 [Last Taken Unknown] Ibuprofen [Advil] 400 mg PO BID PRN 08/08/18 [Last Taken 08/08/18] LORazepam [Ativan (*)] 0.25 mg PO BID PRN 08/08/18 [Last Taken 08/08/18] Multivitamins [Multivitamin (*)] 1 each PO DAILY 08/08/18 [Last Taken 08/07/18] Nf Estrogen 1 each PO HS 08/08/18 [Last Taken 08/07/18] Nf Testosterone/Dhea 1 each PO DAILY 08/08/18 [Last Taken 08/07/18] PARoxetine HCL [Paxil 10mg (*)] 2.5 mg PO BID 08/08/18 [Last Taken 08/08/18] traMADol [Ultram 50 mg (*)] 12.5 mg PO TID PRN 08/08/18 [Last Taken 08/08/18] Aspirin EC [Aspirin EC 81 mg (*)] 81 mg PO DAILY #30 tab 08/10/18 [Last Taken Unknown] Cefuroxime Axetil [Ceftin (*)] 250 mg PO BID #10 tab 08/10/18 [Last Taken Unknown] metroNIDAZOLE [Flagyl 500 mg (*)] 500 mg PO BID #10 tab 08/10/18 [Last Taken Unknown] Discharge Medications: Refer to the Discharge Home Medication list for PRN reason. - Orders Services needed: Home Care, Registered Nurse, Physical Therapy, Occupational Therapy, Speech Language Pathologist Home Care Face to Face: I certify that this patient was under my care and that I had the required [id number] encounter meeting the encounter requirements on the discharge day. My findings support the fact that the patient is homebound as defined in Home Care Face to Face Continued: CMS Chapter 7 Medicare Benefits Manual 30.1.1 , The condition of the patient is such that there exists a normal inability to leave home and consequently, leaving home would require a considerable and taxing effort. Diet Recommendation: no restrictions on diet Additional Instructions: 1. Increased liver function tests - recommend repeat labs in 2 weeks - if persistently elevated then consult with hepatology 2. Increased bandemia - repeat CBC with differential in 2 weeks 3. Posterior descending artery aneurysm of brain - outpatient consultation with Neurosurgery Dr. Mitchell 4. Gonadal vein reflux - possible pelvic congestion syndrome - recommend consultation with GROUND MIXER - Labs/Radiology CBC w/diff Date: 08/24/18 LFT Date: 08/24/18 - Follow Up Care Current Providers and Referrals: Reji Mitchell MD [Medical Doctor] - Tootie Peterson MD [Medical Doctor] - (GROUND MIXER) Ludy Caro MD [Primary Care Provider] - As per Instructions
--- NOTE | 2018-08-10 15:10 | ASMTLACE ---
DREAE Length of stay for Answers: 2 days current admission Acuity / Level of Answers: Yes Care: Did the patient have an inpatient admission? Comorbidities - select Answers: Opioid dependence all that apply / Chronic pain # of Emergency department Answers: 1-2 visits in the last 6 months Social determinants Answers: Mental health diagnosis (anxiety, depression, pers onality disorders, etc.) Score: 13 Date Signed: 08/10/2018 03:09 PM Electronically Signed By:DELROY Khan
--- NOTE | 2018-08-10 15:11 | ASMTCMCOM ---
CM Note CM Note Notes: Pt medically stable for d/c with [facility] PT/OT/FISH EGG PACKER. Orders to be obtained via [employer]. Date Signed: 08/10/2018 03:10 PM Electronically Signed By:DELROY Khan
--- NOTE | 2018-08-10 19:15 | GDS ---
DISCHARGE DIAGNOSES: 1. Sepsis due to odontogenic infection. 2. Possible transient ischemic attack. 3. Anxiety with panic attacks. 4. Posterior descending artery aneurysm. 5. Pelvic congestion syndrome with gonadal reflux. 6. Anemia of chronic disease. 7. Increased liver function tests. 8. Hyponatremia suspect syndrome of inappropriate antidiuretic hormone. 9. Chronic left foot drop and sciatica due to previous surgical nerve injury. 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 She is trying to step-down from her position. She also recently developed a dental infection and is undergoing procedures as an outpatient with an oral surgeon. Henna matias presented to the hospital with fever, bandemia and tachycardia. She also had transient right-sided weakness. She had a du positive review of systems. She also had neck pain, headache, abdominal pa in, chest pain and she was tachycardic on presentation with a high degree of ectopy, PACs and PVCs as sociated with an acute panic reaction. She was admitted to the hospital. Blood cultures are negative. I spoke with her oral surgeon who re commended a CT scan of her jaw that did not show any signs of deeper infection. She was treated empi rically with ceftriaxone and Flagyl and did have resolution of fevers and she is feeling better. Giv en her du positive review of systems, she also got a CT scan of the chest, abdomen and pelvis. This ruled out pulmonary embolus. Also ruled out any intraabdominal infection and I do think the dental infection is the source of her recent sepsis. She also had a transient right-sided weakness concerning for possible TIA. MRI of her brain was nega tive. CT angiogram of her head and neck is negative. Neuro saw her in consultation. They thought i t was atypical for TIA but did recommend daily aspirin therapy just in case. Incidental findings on examination included a posterior descending artery aneurysm for which outpatie nt neurosurgery followup is recommended. She also had gonadal vein reflex with possible pelvic conge stion syndrome seen on CT scan, although she does not have much in the way of symptoms attributable t o this, but do recommend outpatient discussion with INKER. Her liver function tests were persistently e levated with transaminases in the 100s. Imaging of the liver is negative. Viral hepatitis panel is negative. Recommended follow up LFTs in 2 weeks and consultation with hepatology if they remain elev ated. She also has anemia of chronic disease for unclear reasons but her iron studies were negative for iron deficiency and she actually had elevation of acute phase reactants such as her ferritin whic h was 1090. Her ESR however was only 9. She states her hyponatremia is long-standing and this is her baseline. Anxiety is clearly highly contributing to her current presentation. 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 I do find her to be completely psychologically decompensated with severe anxiety to the point of causing significant cardiac ectopy. I did recommend that she take a significant break from work. DISCHARGE MEDICATIONS: Please see computer record for full detailed list. New medications: 1. Aspirin 81 mg p.o. daily. 2. Ceftin 250 mg p.o. twice daily x5 days. 3. Flagyl 500 mg p.o. twice daily x5 days. ADDITIONAL DISCHARGE INSTRUCTIONS: 1. Recommend repeat LFTs in 2 weeks. If persistently elevated, then consult with hepatology. 2. Persistent bandemia. Repeat CBC with differential in 2 weeks. 3. Posterior descending artery aneurysm of the brain. Recommend outpatient consultation with neuros urgery, Dr. Mitchell. 4. 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 Recommend consultation with INKER. Greater than 30 minutes' time spent arranging this discharge. Patient seen and examined by me on day of discharge. /[id number]/MODL
== END 2018-08-10 15:18 | disposition home or self-care (01) | DRG 872 ==
LOC: F2W 13:48 → OBSVTOIN 08-09 11:00 → F3N 08-09 18:13
PROVIDERS: ADMIT Internal Medicine; ATTEND Internal Medicine
DX: A41.9 Sepsis, unspecified organism (principal); G45.9 Transient cerebral ischemic attack, unspecified; E87.1 Hypo-osmolality and hyponatremia; K05.6 Periodontal disease, unspecified; I67.1 Cerebral aneurysm, nonruptured; F41.0 Panic disorder [episodic paroxysmal anxiety]; N94.89 Other specified conditions associated with female genital organs and menstrual cycle; D63.8 Anemia in other chronic diseases classified elsewhere; M21.372 Foot drop, left foot; M54.32 Sciatica, left side; G89.29 Other chronic pain; Z96.649 Presence of unspecified artificial hip joint; Z88.0 Allergy status to penicillin
CPT/HCPCS: 82607-90; 84484-PO; 92507-GN; 92523-GN; 96374; 97116-GP; 97161-GP; 97165-GO; 97530-GO; G0378; G0472; G8978-GP-CI; G8979-GP-CI; G8980-GP-CI; G8987-GO-CI; G8988-GO-CI; G8989-GO-CI; G9168-GN-CK; G9169-GN-CI; G9170-GN-CJ; J0696; J1200; J2060; J2405; J2930; Q9967

== ENCOUNTER → 2018-09-07 | Outpatient (CLI) | payer OTHER | LOC: BMCIMAGING 12:21 | PROVIDERS: ATTEND Internal Medicine | DX: J40 Bronchitis, not specified as acute or chronic (principal) ==

== ENCOUNTER → 2018-12-08 | Outpatient (CLI) | payer OTHER | LOC: BHFA 13:00 | PROVIDERS: ATTEND Internal Medicine Interventional Cardiology | DX: R94.31 Abnormal electrocardiogram [ECG] [EKG] (principal); R00.2 Palpitations; G45.9 Transient cerebral ischemic attack, unspecified ==

== ENCOUNTER → 2018-12-16 | Outpatient (CLI) | payer OTHER | LOC: FIMAGING 08:24 | PROVIDERS: ATTEND Nurse Practitioner Adult Health | DX: R94.31 Abnormal electrocardiogram [ECG] [EKG] (principal); R00.2 Palpitations ==

== ENCOUNTER → 2019-03-09 | Outpatient (CLI) | payer OTHER | LOC: BMCIMAGING 08:48 | PROVIDERS: ATTEND Physician Assistant | DX: R74.8 Abnormal levels of other serum enzymes (principal); D13.4 Benign neoplasm of liver ==

== ENCOUNTER → 2019-04-26 | Outpatient (CLI) | payer OTHER | LOC: FIMAGING 12:25 ==